=== PATIENT | male | born 1970 | race Caucasian/White ===

== ENCOUNTER 2022-07-22 06:40 | Emergency (ER) | payer SELFPAY ==
[~2022-07-22] VITALS: Ht 177.8 cm; Wt 83.9 kg
[2022-07-22 06:51] VITALS: BP 160/101
[2022-07-22] MEDS ORDERED: hydroCHLOROthiazide 25 MG TAB PO ONE ×2 (07:05→08:20)
[2022-07-22] MEDS ORDERED: lisinopriL 20 MG TAB PO ONE (08:20)
--- NOTE | 2022-07-22 08:20 | NUR ---
51 Y/O MALE BIB BY [employer] FOR PREBOOK FOR PT BP. PT DENIES ANY PAIN, SOB, HEADACHE, BLURRY VISION. NKA PMH: HTN, HDL
[2022-07-22] MEDS ORDERED: LISI-486 PO (10:00)
[2022-07-22] MEDS ORDERED: HYDR-4004 PO (10:00)
[2022-07-22 10:05] VITALS: BP 160/90
--- NOTE | 2022-07-22 10:05 | NUR ---
PATIENT BIB [place] [employer]. PATIENT EXAMINED BY DR. ALVARADO. PATIENT MEDICALLY CLEARED AND RELEASED IN CUSTODY IN STABLE CONDITION. ORIGINAL PRE-BOOK FORM GIVEN TO OFFICER UNIQUE.
== END 2022-07-22 12:05 ==
LOC: MED 06:40
DX: I10 Essential (primary) hypertension (principal); E78.5 Hyperlipidemia, unspecified; Z79.899 Other long term (current) drug therapy
CPT/HCPCS: 99284